=== PATIENT | female | born 1945 | race Caucasian/White ===

== ENCOUNTER → 2016-12-24 | Outpatient (CLI) | payer MEDICARE ==
[2016-12-24 11:53] LABS: Appearance,Urine Clear (Clear); Bacteria,Urine Rare /hpf; Bilirubin,Urine Negative (Negative); Glucose,Urine (UA) Negative (Negative); Ketones,Urine Negative (Negative); Leukocyte Esterase,Urine Moderate (Negative); Mucus,Urine Rare /hpf; Nitrite,Urine Negative (Negative); Particle Count 1539; Protein,Urine Negative (Negative); RBC,Urine 1 /hpf (0-5); Specific Gravity,Urine 1.014 (1.001-1.035); Squamous Epithelial Cell,Urine <1 /hpf (0-4); UA Billing (MACRO vs. MICRO) MICRO; Urobilinogen,Urine <2.0 mg/dL (<2.0); WBC,Urine 5 /hpf (0-5)
[2016-12-24 11:55] LABS: Partial Thromboplastin Time 22.5 sec (22.0-30.0)
== END | disposition home or self-care (01) ==
LOC: LABPAT 10:54
PROVIDERS: ATTEND Orthopaedic Surgery Orthopaedic Surgery of the Spine
DX: Z01.812 Encounter for preprocedural laboratory examination (principal); Z79.01 Long term (current) use of anticoagulants
CPT/HCPCS: 81001; 85610; 85730; 86850; 86900; 86901

== ENCOUNTER → 2016-12-28 | Outpatient (CLI) | payer MEDICARE | END | disposition home or self-care (01) | LOC: LABPAT 11:15 | PROVIDERS: ATTEND Orthopaedic Surgery Orthopaedic Surgery of the Spine | DX: Z01.812 Encounter for preprocedural laboratory examination (principal) | CPT/HCPCS: 87070 ==

== ENCOUNTER 2017-01-05 05:49 | Inpatient (IN) | payer MEDICARE, OTHER ==
[2016-12-29 11:39] VITALS: BMI 29.4
[~2017-01-05 05:49] MED LIST: BACITRACIN 50,000 UNIT, POLYMYXIN B 500,000 UNIT in SODIUM CHLORIDE 0.9% IRRIGATIO 1,00... IRRIGATION ONE; DEXAMETHASONE SOD PHOSPHATE 10 MG/ML 1 ML VIAL IV ONE; LACTATED RINGERS 1,000 ML IV SCH; LIDOCAINE 1% 20 ML VIAL (10MG/ML) FOR IV START INTRADERMA PRN; MIDAZOLAM 2 MG/2 ML VIAL IV PRN; ONDANSETRON 4 MG/2 ML VIAL IVP ONE; SCOPOLAMINE 1.5MG/72HR PATCH TRANSDERM ONE; ceFAZolin 2 GM in SODIUM CHLORIDE 0.9% 100 ML IVPB ONE
[2017-01-05] MEDS ORDERED: LIDOCAINE 1% INJ 10MG/ML (20 ML MDV) ONE (07:28)
[2017-01-05] MEDS ORDERED: SODIUM CHLORIDE 0.9% IRRIG 1,000 ML BTL IRRIGATION ONE (07:28)
[2017-01-05] MEDS ORDERED: ROCURONIUM BROMIDE 10 MG/ML 10 ML VIAL IV ONE (07:28)
[2017-01-05] MEDS ORDERED: PROPOFOL 10 MG/ML 20 ML VIAL IV ONE (07:28)
[2017-01-05] MEDS ORDERED: SUCCINYLCHOLINE CHLORIDE 100 MG/5 ML SYR IV ONE (07:28)
[2017-01-05] MEDS ORDERED: fentaNYL (PF) 50 MCG/ML 2 ML AMP ONE (07:28)
[2017-01-05] MEDS ORDERED: HEPARIN SODIUM,PORCINE 10,000 UNIT/ML 1 ML VIAL ONE (07:28)
[2017-01-05] MEDS ORDERED: MIDAZOLAM 2 MG/2 ML VIAL ONE (07:28)
[2017-01-05] MEDS ORDERED: PHENYLEPHRINE-0.9% NACL SYG 1 MG/10 ML SYRINGE ONE (07:28)
[2017-01-05] MEDS ORDERED: LACTATED RINGERS 1,000 ML IV ONE ×2 (08:21→09:59)
[2017-01-05] MEDS ORDERED: GELATIN SPONGE,ABSORB (LARGE) 1 EACH SPONGE TOPICAL ONE (08:26)
[2017-01-05] MEDS ORDERED: BUPIVACAINE (PF) 0.25% 30 ML VIAL SQ ONE (08:26)
[2017-01-05] MEDS ORDERED: LIDOCAINE 0.5%-EPI 1:200,000 50 ML VIAL SQ ONE (08:26)
[2017-01-05] MEDS ORDERED: THROMBIN (BOVINE) 5,000 UNIT VIAL MISCELLANE ONE (08:26)
--- NOTE | 2017-01-05 08:35 | XR ---
EXAMINATION TYPE: XR lumbar spine 1V DATE OF EXAM: 01/05/2017 COMPARISON: NONE HISTORY: Intraoperative localization TECHNIQUE: Crosstable lateral view of the lumbar spine is submitted Localization device is noted at the posterior L4 vertebral segment.
--- NOTE | 2017-01-05 11:27 | XR ---
EXAMINATION TYPE: XR lumbar spine 2 or 3V DATE OF EXAM: 01/05/2017 CLINICAL HISTORY: hardware placement TECHNIQUE: AP and lateral portable views of the lumbar spine submitted. FINDINGS: Status post lumbar laminectomy and fusion. Intervertebral body spacers at the L3-4 and L5-S1. Alignme nt is near-anatomic. IMPRESSION: Near-anatomic postoperative alignment.
[2017-01-05] MEDS ORDERED: HYDROmorphone PCA 5 MG/25 ML SYRINGE IV PRN (11:48)
[2017-01-05] MEDS ORDERED: BENZOCAINE/MENTHOL LOZENG 1 EACH LOZENGE MUCOUS MEM PRN (11:48)
[2017-01-05] MEDS ORDERED: MAGNESIUM HYDROXIDE 2,400 MG/10 ML CUP PO PRN (11:48)
[2017-01-05] MEDS ORDERED: DIAZEPAM 5 MG TAB PO PRN (11:48)
[2017-01-05] MEDS ORDERED: HYDROmorphone 1 MG/ML 1 ML SYRINGE IVP PRN (11:48)
[2017-01-05] MEDS ORDERED: ONDANSETRON 4 MG/2 ML VIAL IVP PRN (11:50)
[2017-01-05] MEDS ORDERED: HYDROcodone/APAP 5-325MG 1 EACH TAB PO PRN (11:50)
[2017-01-05] MEDS ORDERED: traMADol 50 MG TAB PO PRN (11:53)
--- NOTE | 2017-01-05 12:02 | P.OP ---
Date of Procedure: 01/05/17 Preoperative Diagnosis: Degenerative scoliosis lumbar spine, spinal stenosis L3 4 L4 5 L5-S1, degenerative disc disease L3 4 L4 5 L5-S1, low back pain with lower extremity radiculopathy, herniated nucleus pulposis L3 4 and L5-S1, Postoperative Diagnosis: Same Procedure(s) Performed: Implants: Anesthesia: GETA Pathology: none sent Condition: stable Disposition: PACU Indications for Procedure: Operative Findings: Description of Procedure: BRIEF OPERATIVE NOTE Preoperative Diagnosis: Degenerative scoliosis, spinal stenosis L3 4 L4 5 L5-S1 , degenerative disc disease L3 4 L4 5 L5-S1, herniated nucleus pulposis L3 4 L5- S1, low back pain with lower extremity radiculopathy Postoperative Diagnosis: Same Procedure: Laminectomy and decompression with wide bilateral foraminotomy L3 4 L4 5 L5-S1 Posterior lateral decompression and fusion L3 4 L4 5 L5-S1 Transforaminal lumbar interbody fusion for a 360 fusion L3 4 and L5-S1 Discectomy for decompression L3 4 and L5-S1 L3 4 and L5-S1 Placement of interbody graft Local autogenous bone grafting Bone marrow aspiration revealed the pedicle of L4 for supplementing the local and autogenous bone graft Use of Cell Saver Use of bone graft extenders Use of neuro monitoring Surgeon: Dr. Beavers Assistant Community Manager: Darren Meehan is present throughout the entire the case persistence during positioning, dissection, exposure, visualization, and all crucial elements of the case as well as closure. Anesthesia: General anesthesia per Dr. Chamorro Estimated blood loss: Approximately 500 mL with approximately 260 mL given back through Cell Saver Complications: None apparent Components implanted: K2M [place] pedicle screw system with 8 screws each measuring 6.5 mm in diameter, 2 rods and one cross-link with 2 K2M peek interbody cages and one cross-link along with one large osteo-amp allograft bone sponge and 30 mL of allograft DBX bone fibers Disposition: To recovery room in good stable condition. OPERATIVE INDICATIONS The patient has had long-standing issues in their lower back and lower extremities. She is found have significant degenerative scoliosis with severe disc degeneration causing significant spinal stenosis along with herniated nucleus pulposis which correlated well with her low back and lower extremity symptoms. She is having worsening this pain despite aggressive conservative treatment. She is having significant debility due to her progressive back pain and lower extremity radiculopathy. The patient has been through conservative treatment. She is not having any along pain improvement despite conservative care. We discussed various treatment options including surgery, and the patient wishes to proceed with surgery We discussed the risk, patient's alternatives and benefits of surgery including but not limited to, risk of bleeding risk of infection, risk of need for further surgery, risk of decreased , loss of motion, muscle function, malunion nonunion, hardware failure, nerve damage, paralysis, heart attack, blindness and . OPERATIVE SUMMARY After discussing all the risks, patient alternatives and benefits at length, the patient elected to proceed with surgical intervention, signed informed consent, and presented for their procedure. The patient was seen and examined in the preoperative holding area and the surgical site was marked. The patient was given antibiotics and brought to the operating room. The patient was sedated and intubated by anesthesia in standard fashion. The patient was positioned on to the operating room table in a prone position on the appropriate frame which was well-padded and well molded. We were careful to pad any bony prominences and pressure points. We were careful to maintain the patient's cervical spine and good neutral alignment and position throughout. The patient was prepped and draped in a normal standard fashion. An appropriate timeout and keystone protocol performed. We were able to proceed with the surgery. The local wound area was infiltrated with local anesthetic. An incision was made at the midline longitudinally over the appropriate levels from L3 to S1. Dissection was taken down subcutaneously to the level of the fascia which was split midline. Dissection was taken over the lamina bilaterally over the facet joints and to the transverse processes. Intraoperative x-ray was taken which showed a marker at the appropriate level at L4 pedicle. With the appropriate level positively confirmed, we were able to proceed with placement of the pedicle holes and screws. The patient had all their twitches back. The wound was copiously irrigated and suctioned dry as had been done periodically throughout the case. Screw holes were established similarly at each level. A sharp awl was used to establish the starting hole. It was palpated and found to have good for duarte and good base. During placement of the screws I had taken account the curvature and scoliotic rotation to establish appropriate placement. A monitored Steffee probe was used to establish the pedicle hole. It was positioned so there was no stimulation at 12 mA. The hole was palpated and found to have good for duarte and a good base. The hole was tapped with the appropriate sized tap. The transverse process or sacral ala was decorticated with a high-speed bur. I was able to use these holes to place the appropriate size screw and good alignment and good position with good bony purchase. When the screws were inserted there were stimulated, and found to have no stimulation at 17 mA. this was performed with all screws at L3 4 5 and S1 bilaterally. I was able to turn my attention to the decompression. decompression was performed with a combination of rongeurs, curettes, Kerrison rongeurs and a ball -tip feeler. There was significant stenosis bilaterally particularly at the foraminal spaces at L3 4 L4 5 and L5-S1 which was remedied with the decompression. All of the bone that was removed was stripped and morcellized for use as autogenous bone graft later in the case. I was able to obtain good central decompression as well as wide bilateral foraminal decompression at L3 4 L4 5 and L5-S1. There is no evidence of dural tear or leak. Good hemostasis was maintained. The wound was irrigated and suctioned dry. I performed a complete facetectomy at the appropriate level on the most symptomatic side at L3 4 and L5-S1. There was severe advanced collapsed at L4 5 and I do not feel that would be able to place an interbody device at that level. At L3 4 and L5-S1 All bone that was removed was saved for local autogenous bone grafting. I was able to gain access to the disc space at the appropriate level/levels. Good hemostasis was maintained. I was able to protect the neurologic structures. No was made of disc protrusion and compression from the disc itself. There was some evidence of herniation at L5- S1 as well. A discectomy was performed. This provided further decompression. I was also able to perform complete discectomy and endplate preparation with a combination of pituitary curettes, rasps and scrapers. With the interbody space prepared, I was able to do appropriate sizing. The appropriate size cage was chosen. The wound was irrigated and suctioned dry. The interbody space was packed with local autogenous bone graft and a small portion of bone graft substitute, as was the cage itself. Protecting the soft tissue structures, I was able place the cage in good alignment and good position with good fit and fill at L3 4 and then at L5-S1. There is no evidence of extrusion of the graft material nor protrusion of the interbody device. The wound was irrigated and suctioned dry. With the hardware intact, intraoperative x-ray was again taken which showed good alignment and position of the hardware at the appropriate levels from L3 to S1. We were then able to measure, contour and place the rods and appropriate hardware bilaterally. I did perform some gentle distraction at the concave side to get good realignment of the scoliotic curvature. I was able to place capcrews, tighten them down, and torque them off appropriately. The sheared portion was counted and accounted for. With this intact I was able to place the local autogenous bone graft with additional bone graft enhancer as necessary into the posterior lateral gutters bilaterally. With the bone graft intact, a stable construct, and good decompression at the appropriate levels, we were able to proceed with closure. Good hemostasis was maintained. There is no evidence of dural tear or leak. The fascia was closed for a watertight closure. The subcutaneous tissue was closed over a superficial drain. The subcuticular tissue was closed with absorbable suture. The wound was cleaned and dried and dressed with the appropriate dressing. The drapes were broken down. The patient was gently rolled back onto their hospital bed being careful to maintain their cervical spine and good neutral alignment and position. They were woken up by anesthesia, extubated, and brought to the recovery room in good stable condition. The patient will be admitted to the hospital for appropriate postoperative care , medical management and monitoring. We will continue to follow them closely about the postoperative course.
[2017-01-05] MEDS: HYDROmorphone 1 MG/ML 1 ML SYRINGE IVP PRN ×6 (12:20→20:18)
[2017-01-05] MEDS: SODIUM CHLORIDE 0.9% 1,000 ML IV SCH ×3 (14:40→20:21)
[2017-01-05 16:25] LABS: ALT 33 U/L (9-52); AST 35 U/L (14-36); Alkaline Phosphatase 50 U/L (38-126); Anion Gap 5 mmol/L; Blood Urea Nitrogen 20 mg/dL (7-17); Calcium 8.5 mg/dL (8.4-10.2); Carbon Dioxide 26 mmol/L (22-30); Chloride 104 mmol/L (98-107); Glucose 108 mg/dL (74-99); Non-African American GFR(MDRD) >60 (>60 ml/min/1.73 sqM); Potassium 4.3 mmol/L (3.5-5.1); Sodium 135 mmol/L (137-145); Total Bilirubin 0.9 mg/dL (0.2-1.3); Total Protein 5.3 g/dL (6.3-8.2)
[2017-01-05 16:29] LABS: Basophils % (A) 0 %; CH 29.9; CHCM 34.4; Eosinophils % (A) 0 %; HCT 37.2 % (34.0-46.0); HGB 12.7 gm/dL (11.4-16.0); Luc # (Auto) 0.09; Luc % (Auto) 1; Lymphocytes # (A) 0.8 k/uL (1.0-4.8); Lymphocytes % (A) 8 %; MCH 29.9 pg (25.0-35.0); MCHC 34.2 g/dL (31.0-37.0); MCV 87.5 fL (80.0-100.0); Mean Platelet Volume 7.2; Monocytes # (A) 0.6 k/uL (0-1.0); Monocytes % (A) 6 %; Neutrophils # (A) 9.6 k/uL (1.3-7.7); Neutrophils % (A) 86 %; RBC 4.26 m/uL (3.80-5.40); RDW 13.8 % (11.5-15.5); WBC 11.2 k/uL (3.8-10.6); WBC (Perox) 11.54
[2017-01-05] MEDS: ceFAZolin 2 GM in SODIUM CHLORIDE 0.9% 100 ML IVPB SCH ×2 (16:40→23:13)
[2017-01-05] MEDS: ATORVASTATIN 40 MG TAB PO SCH (20:19)
[2017-01-05] MEDS: NITROFURANTOIN MONOHYD/M-CRYST 100 MG CAP PO SCH (20:19)
[2017-01-05] MEDS: HYDROcodone/APAP 5-325MG 1 EACH TAB PO PRN (23:13)
[2017-01-06] MEDS: HYDROmorphone 1 MG/ML 1 ML SYRINGE IVP PRN ×3 (04:37→16:38)
[2017-01-06] MEDS: SODIUM CHLORIDE 0.9% 1,000 ML IV SCH ×2 (04:38→08:58)
[2017-01-06 06:06] LABS: Basophils % (A) 0 %; Eosinophils % (A) 1 %; HCT 34.7 % (34.0-46.0); HDW 2.45; HGB 11.8 gm/dL (11.4-16.0); Luc % (Auto) 2; Lymphocytes # (A) 0.9 k/uL (1.0-4.8); Lymphocytes % (A) 13 %; MCH 30.1 pg (25.0-35.0); MCHC 33.9 g/dL (31.0-37.0); MCV 88.8 fL (80.0-100.0); Mean Platelet Volume 7.5; Monocytes # (A) 0.5 k/uL (0-1.0); Monocytes % (A) 7 %; Neutrophils # (A) 5.3 k/uL (1.3-7.7); Neutrophils % (A) 78 %; RBC 3.91 m/uL (3.80-5.40); RDW 13.9 % (11.5-15.5); WBC 6.8 k/uL (3.8-10.6); WBC (Perox) 7.33
[2017-01-06 06:47] LABS: Anion Gap 4 mmol/L; Blood Urea Nitrogen 13 mg/dL (7-17); Calcium 8.6 mg/dL (8.4-10.2); Carbon Dioxide 27 mmol/L (22-30); Chloride 108 mmol/L (98-107); Glucose 106 mg/dL (74-99); Non-African American GFR(MDRD) >60 (>60 ml/min/1.73 sqM); Potassium 3.9 mmol/L (3.5-5.1); Sodium 139 mmol/L (137-145)
--- NOTE | 2017-01-06 07:50 | CONS ---
DATE OF SERVICE: 01/05/2017 Reason for consultation is advice regarding hypertension, hyperlipidemia, requested by Orthopedic Surgery. HISTORY OF PRESENT ILLNESS: This is a 71-year-old woman with a past medical history of hypertension, hyperlipidemia, DJD, had a back surgery. Patient had laminectomy and decompression. There is no history of fever, chills or rigors. No history of headache, loss of consciousness. Patient has mildly relative hypotension. PAST MEDICAL HISTORY: Hypertension, hyperlipidemia, DJD, history of scoliosis, section. Medications prior to admission include Ultram 50 to 100 q.6 p.r.n., Nitrofurantoin 100 mg p.o. b.i.d., lisinopril-hydrochlorothiazide 1 tablet p.o. daily, Ibuprofen 81 mg q.6 p.r.n., Lipitor 40 mg q.h.s. Allergies are none. FAMILY HISTORY: History of blood disorder, cancer, DVT in the family. SOCIAL HISTORY: Previous history of smoking, no history of alcohol intake. REVIEW OF SYSTEMS: ENT: No diminished hearing or diminished vision. CARDIOVASCULAR: No angina, no palpitation. RESPIRATORY: As mentioned earlier. GI: No nausea. : No dysuria. NERVOUS SYSTEM: No numbness or weakness. ALLERGY/IMMUNOLOGY: No asthma or hayfever. MUSCULOSKELETAL: As mentioned earlier. HEMATOLOGY: No history of anemia. ENDOCRINE: No history of diabetes or hypothyroid. CONSTITUTIONAL: As mentioned earlier. DERMATOLOGY: Negative. RHEUMATOLOGY: Negative. PSYCHIATRY: As mentioned earlier. PHYSICAL EXAM: Patient is alert and oriented x3. Pulse 99, blood pressure 98, respirations 20 , temperature is normal. Pulse ox normal. HEENT: Conjunctivae normal. NECK: No jugular venous distension. CARDIOVASCULAR SYSTEM: S1, S2, muffled. RESPIRATORY: Breath sounds diminished at the base, no rhonchi, no crackles. ABDOMEN: Soft, nontender, no mass palpable. LEG: No edema, no swelling. NERVOUS SYSTEM: No focal deficits. BACK: Status post surgery. Labs are at this time the current labs are not available. UA shows moderate . ASSESSMENT: 1. Status post laminectomy with decompression with bilateral foraminotomy L3-4 , L4-5 and L5-S1 for degenerative joint disease and spinal stenosis. 2. Relative hypotension. 3. History of hypertension. 4. Hyperlipidemia. 5. Degenerative joint disease. 6. History of section. 7. Remote history of nicotine dependence. 8. FULL CODE. RECOMMENDATION: In this 71-year-old woman who presented with multiple complex medical issues, will monitor the patient closely. Continue with the current medication. Continue with the symptomatic treatment. Recommend hold off the lisinopril and will continue to monitor and once the blood pressure is stabilized, the lisinopril may be restarted. Otherwise, further recommendations to follow. MTDD
[2017-01-06] MEDS ORDERED: LISINOPRIL-HCTZ 10-12.5 MG 1 EACH TAB PO SCH (09:00)
[2017-01-06] MEDS: NITROFURANTOIN MONOHYD/M-CRYST 100 MG CAP PO SCH ×2 (09:06→21:37)
[2017-01-06] MEDS: SENNOSIDES-DOCUSATE SODIUM 1 EACH TAB PO SCH (09:07)
--- NOTE | 2017-01-06 09:49 | P.PN ---
Progress Note - Text Postoperative day #1 Patient is seen and examined today at bedside. The patient has some pain around the surgical site as expected. She had to switch removed yesterday and she was able stand up yesterday and has already sat up in bed this morning. Pain is being controlled with medication. She has been able to eat dinner and breakfast this morning Physical Exam Afebrile with stable vital signs Abdomen is soft nontender. Chest has good excursion deep and space expiration The incision site is clean dry and intact. No erythema there is no purulence. The dressing and the drains are intact at her back Extremities have not had neurologic change from prior to surgery. She has sustained dorsal flexion plantar flexion and EHL intact. Calves and thighs were soft nontender without evidence of DVT. Assessment/Plan Postoperative day #1 status post lumbar decompression and fusion L3 4 L4 5 L5- S1 for her degenerative scoliosis with spinal stenosis and degenerative disc disease Patient is progressing as expected from the surgery. She is already done some mobilization and is tolerating her diet nicely. We will continue to increase the patient's mobilization with therapy. Physical therapy will work with her this morning. Her Andrew catheter will be discontinued today. We will continue pain control with oral or IV medications. We'll continue to follow patient closely.
--- NOTE | 2017-01-06 16:13 | PN ---
DATE OF SERVICE: 01/06/17 This 71-year-old woman who was admitted after laminectomy is improving significantly. No chest pain. No palpitations. No fever. PHYSICAL EXAMINATION: The patient is alert and oriented times three. Pulse 82. Blood pressure 111/60. Respiratory rate 18. Temperature 98.8. Pulse ox 99% on 2 L. HEENT: Conjunctivae normal. Oral mucosa moist. NECK: No JVD. Cardiovascular : S1, S2 muffled. Respiratory: Breath sounds diminished at the bases. A few scattered rhonchi and no crackles. Abdomen soft. Nontender. Legs no edema. No swelling. Nervous system: No focal deficits. Minimal facial puffiness. Examination of the back status post surgery. Labs: WBC 6.8. Glucose 106. ASSESSMENT: 1. Status post laminectomy and decompression and bilateral foraminotomy L3, L4 , L4-5, L5-S1 for degenerative joint disease and spinal stenosis. 2. Relative hypotension. 3. History of hypertension. 4. Hyperlipidemia. 5. Degenerative joint disease. 6. History of . 7. Remote history of nicotine dependence. 8. FULL CODE. RECOMMENDATIONS AND DISCUSSION: In this 71 -year-old woman who presented with multiple complex medical issues, we will monitor the patient closely. Continue the current medications. Continue symptomatic treatment. Otherwise, incentive spirometry. Deep venous thrombosis prophylaxis. Continue the rest of the medications. Further recommendations to follow. MTDD
[2017-01-06] MEDS: ATORVASTATIN 40 MG TAB PO SCH (21:37)
[2017-01-07] MEDS: SODIUM CHLORIDE 0.9% 1,000 ML IV SCH ×3 (07:17→22:02)
[2017-01-07 07:44] LABS: Basophils % (A) 0 %; CH 30.1; CHCM 34.4; Eosinophils % (A) 0 %; HDW 2.45; HGB 10.6 gm/dL (11.4-16.0); Luc # (Auto) 0.16; Luc % (Auto) 2; Lymphocytes # (A) 0.8 k/uL (1.0-4.8); Lymphocytes % (A) 8 %; MCHC 34.1 g/dL (31.0-37.0); MCV 87.9 fL (80.0-100.0); Mean Platelet Volume 7.4; Monocytes # (A) 0.6 k/uL (0-1.0); Monocytes % (A) 6 %; Neutrophils # (A) 7.8 k/uL (1.3-7.7); Neutrophils % (A) 83 %; RBC 3.52 m/uL (3.80-5.40); RDW 13.9 % (11.5-15.5); WBC 9.3 k/uL (3.8-10.6); WBC (Perox) 10.02
--- NOTE | 2017-01-07 08:29 | P.PN ---
Progress Note - Text Orthopedic Spine Patient is a pleasant 71-year-old female who is seen and examined at the bedside following posterior lateral decompression and fusion performed Tuesday. Patient states they are doing well postsurgically. She has been able to ambulate to the restroom on her own with the assistance of a walker. Her Andrew catheter has been discontinued. She feels she is regaining strength of the right lower extremity postsurgically. She is now able to independently lift her left leg off the bed without significant difficulty. This was a problem for her prior to surgery. She continues to receive IV and oral medications for pain control. He continues to have some pain at the surgical site, which is expected. She is able to roll to her left but has difficulty rolling to her right. She is not currently complaining of nausea, vomiting, fever, or chills. Patient states pain has been adequately controlled. Patient is eating and voiding freely without difficulty. She has not had a bowel movement postsurgically. She has not currently passing gas. She is not experiencing any abdominal pain. She states she does not have a regular bowel movement. She is currently receiving Senokot in the morning and milk of magnesia when necessary for constipation. Physical Exam Lumbar Fusion: Status post surgical day number 2 Patient is awake, alert, and oriented 3 Vital signs stable Good chest excursion with deep inspiration and expiration Abdomen soft nontender Dorsiflexion, plantarflexion, and extensor hallucis longus positive sustained bilaterally No signs or symptoms of DVT; no calf pain; pneumatic cuffs intact bilateral lower extremities Dressing is clean, dry, and intact; no erythema, purulence, or signs of infection Dressing removed and changed to nonstick Telfa and Tegaderm during physical examination No active drainage from the incision site Hemovac drain well secure; Hemovac drain removed during physical examination Neurovascularly intact bilaterally lower extremities Assessment: Posterior lateral decompression and fusion L3-S1 Transforaminal lumbar interbody fusion L3-4 and L5-S1 Plan: 1. Ambulate as tolerated; work with Physical Therapy to increase mobilization 2. 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 Dressing changed to Telfa and Tegaderm; Hemovac drain discontinued 4. Medical management can continue to manage patient for patient's other medical issues 5. We will continue to follow the patient closely; if the patient continues to progress, may plan to have her discharged home as early as tomorrow, 01/08/2017 , or possibly 01/09/2017 6. Patient can follow-up with Darren Curtis PA-C or Dr. Kieran Beavers at [facility] in 2-3 weeks following discharge
[2017-01-07] MEDS: HYDROcodone/APAP 5-325MG 1 EACH TAB PO PRN ×4 (08:32→21:31)
[2017-01-07] MEDS: SENNOSIDES-DOCUSATE SODIUM 1 EACH TAB PO SCH (08:32)
[2017-01-07] MEDS: NITROFURANTOIN MONOHYD/M-CRYST 100 MG CAP PO SCH ×2 (08:57→21:31)
[2017-01-07] MEDS: ATORVASTATIN 40 MG TAB PO SCH (21:31)
--- NOTE | 2017-01-07 21:35 | PN ---
DATE OF SERVICE: 01/07/2017 This 71-year-old woman who was admitted after laminectomy is improving significantly. No chest pain. No palpitations. No fever. Occasional cough is reported. On exam, alert and oriented x2. Pulse 109, blood pressure 107/67, respiration 16, temperature 99 degrees, pulse ox 96% on room air. HEENT: Conjunctivae normal. NECK: No jugular venous distention. CARDIOVASCULAR: S1, S2 muffled. RESPIRATORY: Breath sounds diminished at the bases. A few scattered rhonchi. No crackles. ABDOMEN: Soft, non-tender. No mass palpable. LEGS: No edema. No swelling. NERVOUS SYSTEM: No focal deficit. LABS: WBC 9.3, hemoglobin 10.6. ASSESSMENT: 1. Status post laminectomy and decompression, bilateral foraminotomy, L3-4, L4-5 , L5-S1, for degenerative joint disease and spinal stenosis. 2. Relative hypotension. 3. History of hypertension. 4. Hyperlipidemia. 5. History of degenerative joint disease. 6. History of section. 7. Remote history of nicotine dependence. 8. FULL CODE. RECOMMENDATIONS AND DISCUSSION: I recommend to continue the current medications , continue with symptomatic treatment. Otherwise, at this time I recommend continuing with incentive spirometry. Repeat labs in the morning. Closely follow with Orthopedic Surgery. Further recommendations to follow. MTDD
[2017-01-08] MEDS: SODIUM CHLORIDE 0.9% 1,000 ML IV SCH ×3 (05:02→21:15)
[2017-01-08] MEDS: HYDROcodone/APAP 5-325MG 1 EACH TAB PO PRN ×4 (06:56→21:10)
[2017-01-08 07:06] LABS: Basophils % (A) 0 %; CH 30.1; CHCM 34.4; Eosinophils # (A) 0.1 k/uL (0-0.7); Eosinophils % (A) 2 %; HCT 30.6 % (34.0-46.0); HDW 2.49; HGB 10.3 gm/dL (11.4-16.0); Luc # (Auto) 0.14; Luc % (Auto) 2; Lymphocytes % (A) 12 %; MCH 29.5 pg (25.0-35.0); MCHC 33.5 g/dL (31.0-37.0); Mean Platelet Volume 7.4; Monocytes # (A) 0.4 k/uL (0-1.0); Monocytes % (A) 5 %; Neutrophils # (A) 6.6 k/uL (1.3-7.7); Neutrophils % (A) 80 %; RBC 3.48 m/uL (3.80-5.40); RDW 13.8 % (11.5-15.5); WBC 8.3 k/uL (3.8-10.6); WBC (Perox) 8.91
[2017-01-08] MEDS: SENNOSIDES-DOCUSATE SODIUM 1 EACH TAB PO SCH (07:49)
--- NOTE | 2017-01-08 09:29 | P.PN ---
Progress Note - Text Postoperative day #3 Patient is seen and examined today at bedside. The patient has some pain around the surgical site as expected. Pain is being controlled with medication. She is able stand up on her own and walk with her walker in her room. She has not yet had a bowel movement but she is passing gas. She is tolerating her regular diet. Physical Exam Afebrile with stable vital signs Abdomen is soft nontender. Chest has good excursion deep and space expiration The incision site is clean dry and intact. No erythema there is no purulence. There is no active drainage. There is no erythema. Extremities have not had neurologic change from prior to surgery. She has good dorsiflexion plantarflexion at her EHL foot and ankles. Calves and thighs were soft nontender without evidence of DVT. Assessment/Plan Postoperative day #3 status post decompression and fusion at L3 4 L4 5 L5-S1 for her degenerative scoliosis and spinal stenosis with lower extremity radiculopathy Patient is progressing as expected from the surgery. She feels her legs have had significant improvement in her back pain is doing well and improving with medications We will continue to increase the patient's mobilization with therapy. She will continue to increase her mobility and her walking We will continue pain control with oral or IV medications. We'll continue to follow patient closely. I would like to see if she is able to have a bowel movement today and I think she'll be ready for discharge home tomorrow morning.
--- NOTE | 2017-01-08 19:13 | PN ---
DATE OF SERVICE: This 71-year-old woman who was admitted with laminectomy and decompression is being closely monitored. No chest pain. No palpitations. No fever. On exam, alert and oriented times three. Pulse 104. Blood pressure 109/67. Respiratory rate 16. Temperature 98.4. Pulse ox 94% on room air. HEENT: Conjunctivae normal. NECK: No JVD. Cardiovascular: S1, S2 muffled. Respiratory: Breath sounds diminished at the bases. A few scattered rhonchi. Abdomen soft. Nontender. Legs, no edema. No swelling. Nervous system: No focal deficits. Back: Status post surgery. Labs: WBC 8.3, Hemoglobin 10.3. ASSESSMENT: 1. Status post laminectomy decompression bilateral foraminotomy L3-4, L4-5, L5 -S1 for degenerative joint disease. 2. Spinal stenosis. 3. Relative hypotension, improved. 4. History of hypertension. 5. Hyperlipidemia. 6. Degenerative joint disease. 7. History of . 8. Remote history of nicotine dependence. 9. FULL CODE. RECOMMENDATIONS AND DISCUSSION: Recommend to continue the current medications. Continue with symptomatic treatment. Otherwise, closely monitor. Incentive spirometry. Guarded prognosis. Further recommendations to follow. MTDD
[2017-01-08] MEDS: ATORVASTATIN 40 MG TAB PO SCH (20:19)
[2017-01-09] MEDS: HYDROcodone/APAP 5-325MG 1 EACH TAB PO PRN ×3 (01:31→10:52)
[2017-01-09] MEDS: SODIUM CHLORIDE 0.9% 1,000 ML IV SCH (05:48)
[2017-01-09] MEDS: SENNOSIDES-DOCUSATE SODIUM 1 EACH TAB PO SCH (07:20)
[2017-01-09 08:39] VITALS: BP 128/66; PULSE 84; RESP 16; TEMP 97.5
--- NOTE | 2017-01-09 12:18 | P.DS ---
Providers Date of admission: 01/05/17 05:49 Expected date of discharge: 01/09/17 Attending physician: Lurdes Beavers Consults: 01/05/17 15:22 Consult Physician Routine Consulting Provider: Neftali Pelaez Consult Reason/Comments: Medical managment Do you want consulting provider notified?: Already Contacted Primary care physician: Virginia Roto - Discharge Diagnosis(es) (1) Lumbar spinal stenosis Current Visit: Yes Status: Acute (2) Herniated nucleus pulposus, lumbar Current Visit: Yes Status: Acute (3) Lumbar degenerative disc disease Current Visit: Yes Status: Acute (4) Low back pain Current Visit: Yes Status: Acute (5) Radiculopathy with lower extremity symptoms Current Visit: Yes Status: Acute (6) Degenerative scoliosis Current Visit: Yes Status: Acute Hospital Course: This is a pleasant 71-year-old female who presented with L3-4, L4-5, and L5-S1 spinal canal stenosis and degenerative disc disease, L3-4 and [id number] nucleus pulposus, L4-5 severe degenerative disc disease, degenerative scoliosis , low back pain, and lower extremity radiculopathy who failed outpatient conservative therapy. She was admitted for posterior lateral decompression and fusion L3-4, L4-5, and L5-S1 with transforaminal lumbar interbody fusion L3-4 and L5-S1. The patient tolerated the procedure well and did well postoperatively. She is not currently expressing any abdominal pain or discomfort. She is passing gas. She has not had a bowel movement during her admission. She's been able to ambulate without significant difficulty with the aid of a walker. She feels she has been steadily improving over the past couple days. Condition on day of discharge stable. Patient will be discharged home. Patient was cleared preoperatively for surgery by Dr. Root. Patient currently denies any nausea, vomiting, fever, or chills. Patient is eating and voiding freely without difficulty. Patient may shower Tegaderm dressing intact. Patient may remove Tegaderm dressing in 2 days and shower without a dressing at that time. Patient should keep Steri-Strips intact and allow them to fall off naturally. Patient should refrain from driving until at least after their first follow-up appointment in the office. Patient should avoid excessive bending, lifting, and twisting; no lifting greater than 10 pounds. She will be given prescriptions for Darragh 7.5 mg/E 25 mg 1 tab every 6 hours as needed for pain, dispense #90 and Senokot-S 1 tab twice per day as needed for constipation, dispense #60. Patient should discontinue Motrin 800 mg and tramadol 50 mg as previously prescribed. Physical Exam on day of discharge: Patient is awake, alert, and oriented 3 Vital signs stable Good chest excursion with deep inspiration and expiration Abdomen soft nontender No signs or symptoms of DVT; no calf pain Extensor hallucis longus, plantarflexion, and dorsiflexion positive sustained bilateral lower extremities Incision is clean, dry, and intact; no erythema, purulence, or signs of infection Tegaderm dressing and non-stick Telfa intact Procedures: Posterior lateral decompression and fusion L3-4, L4-5, and L5-S1 with transforaminal lumbar interbody fusion L3-4 and L5-S1. Patient Condition at Discharge: Stable Plan - Discharge Summary New Discharge Prescriptions: New HYDROcodone/APAP 7.5-325MG [Darragh 7.5-325] 1 each PO Q6HR PRN #90 tab PRN Reason: Pain Sennosides-Docusate Sodium [Senokot-S] 1 tab PO BID PRN #60 tablet PRN Reason: Constipation No Action traMADol HCL [Ultram] 50 - 100 mg PO Q6HR PRN PRN Reason: Pain Nitrofurantoin Monohyd/M-Cryst [Macrobid] 100 mg PO Q12HR Lisinopril-Hctz 10-12.5 mg [Zestoretic 10-12.5] 1 tab PO DAILY Atorvastatin [Lipitor] 40 mg PO HS Ibuprofen 800 mg PO Q6H PRN PRN Reason: Pain Discharge Medication List Atorvastatin [Lipitor] 40 mg PO HS 12/29/16 [History] Ibuprofen 800 mg PO Q6H PRN 12/29/16 [History] Lisinopril-Hctz 10-12.5 mg [Zestoretic 10-12.5] 1 tab PO DAILY 12/29/16 [History ] Nitrofurantoin Monohyd/M-Cryst [Macrobid] 100 mg PO Q12HR 12/29/16 [History] traMADol HCL [Ultram] 50 - 100 mg PO Q6HR PRN 12/29/16 [History] HYDROcodone/APAP 7.5-325MG [Darragh 7.5-325] 1 each PO Q6HR PRN #90 tab 01/09/17 [ Rx] Sennosides-Docusate Sodium [Senokot-S] 1 tab PO BID PRN #60 tablet 01/09/17 [Rx] Follow up Appointment(s)/Referral(s): Darren Curtis, [place] [PHYSICIAN [employer]] - 2 Weeks (Patient may follow-up with Darren Curtis PA-C or Dr. Kieran Beavers at [facility] in 2-3 weeks following discharge. ) Activity/Diet/Wound Care/Special Instructions: 1. Patient may shower Tegaderm dressing intact. 2. Patient may remove Tegaderm dressing in 2 days and shower without a dressing at that time. 3. Patient should keep Steri-Strips intact and allow them to fall off naturally. 4. Patient should refrain from driving until at least after their first follow- up appointment in the office. 5. Patient should avoid excessive bending, twisting, and lifting; no lifting greater than 10 pounds 6. Do not soak in tub Discharge Disposition: HOME SELF-CARE
--- NOTE | 2017-01-10 09:30 | PN ---
DATE OF SERVICE: 01/09/2017 This 71-year-old woman who was admitted after laminectomy, also had relative hypotension on admission. Patient improving significantly. No chest pain or palpitation. No fever. On exam, alert and oriented x3. The pulse is 84. Blood pressure is 128/66, respirations 16, temperature 97.4, pulse ox 99% on room air. HEENT: Conjunctivae normal. NECK: No jugular venous distention. CARDIOVASCULAR: S1 and S2 muffled. RESPIRATORY: Breath sounds diminished at the bases. No rhonchi, no crackles. ABDOMEN: Soft. LEGS: No edema, no swelling. NERVOUS SYSTEM: No focal deficits. EXAMINATION OF THE BACK: Status post surgery. LABS: WBC 8.3, hemoglobin 10.3. ASSESSMENT: 1. Status post laminectomy and decompression bilateral foraminotomy L3-4, L4-5 , L5-S1 for degenerative joint disease. 2. Spinous stenosis, 3. Relative hypotension, improved. 4. History of hypertension. 5. Hyperlipidemia. 6. History of degenerative joint disease. 7. History of section. 8. Remote history of nicotine dependence. 9. FULL CODE. RECOMMENDATIONS AND DISCUSSION: Recommend to continue the current medications. Continue with monitoring and symptomatic treatment. Otherwise at this time, I would recommend resume the home medications, incentive spirometry. Closely follow with primary physician and the rest of the recommendations per orthopedic surgery. MTDD
== END 2017-01-09 14:51 | disposition home or self-care (01) | DRG 455 ==
LOC: 2ORMAIN 05:49 → 5MS5E 12:12 → 5ONC 19:22
PROVIDERS: ADMIT Orthopaedic Surgery Orthopaedic Surgery of the Spine; ATTEND Orthopaedic Surgery Orthopaedic Surgery of the Spine
PROC: 0SG10A0 Fusion of 2 or more Lumbar Vertebral Joints with Interbody Fusion Device, Anterior Approach, Anterior Column, Open Approach (ICD-10-PCS; 2017-01-05)
PROC: 0SB20ZZ Excision of Lumbar Vertebral Disc, Open Approach (ICD-10-PCS; 2017-01-05)
PROC: 0SB40ZZ Excision of Lumbosacral Disc, Open Approach (ICD-10-PCS; 2017-01-05)
PROC: 0SG30A0 Fusion of Lumbosacral Joint with Interbody Fusion Device, Anterior Approach, Anterior Column, Open Approach (ICD-10-PCS; 2017-01-05)
PROC: 0SG30AJ Fusion of Lumbosacral Joint with Interbody Fusion Device, Posterior Approach, Anterior Column, Open Approach (ICD-10-PCS; 2017-01-05)
PROC: 4A11X4G Monitoring of Peripheral Nervous Electrical Activity, Intraoperative, External Approach (ICD-10-PCS; 2017-01-05)
PROC: 30233N0 Transfusion of Autologous Red Blood Cells into Peripheral Vein, Percutaneous Approach (ICD-10-PCS; 2017-01-05)
PROC: 07DS3ZZ Extraction of Vertebral Bone Marrow, Percutaneous Approach (ICD-10-PCS; 2017-01-05)
PROC: 0SG00AJ Fusion of Lumbar Vertebral Joint with Interbody Fusion Device, Posterior Approach, Anterior Column, Open Approach (ICD-10-PCS; principal; 2017-01-05 07:30)
DX: M48.06 Spinal stenosis, lumbar region (principal); I95.9 Hypotension, unspecified; M48.07 Spinal stenosis, lumbosacral region; M51.37 Other intervertebral disc degeneration, lumbosacral region; M47.817 Spondylosis without myelopathy or radiculopathy, lumbosacral region; M71.38 Other bursal cyst, other site; M46.97 Unspecified inflammatory spondylopathy, lumbosacral region; M51.36 Other intervertebral disc degeneration, lumbar region; M51.27 Other intervertebral disc displacement, lumbosacral region; M51.16 Intervertebral disc disorders with radiculopathy, lumbar region; M41.86 Other forms of scoliosis, lumbar region; I10 Essential (primary) hypertension; E78.5 Hyperlipidemia, unspecified; K59.00 Constipation, unspecified; R05 Cough; R53.81 Other malaise; Z80.1 Family history of malignant neoplasm of trachea, bronchus and lung; Z80.3 Family history of malignant neoplasm of breast; Z83.3 Family history of diabetes mellitus; Z82.49 Family history of ischemic heart disease and other diseases of the circulatory system; Z82.61 Family history of arthritis; Z87.440 Personal history of urinary (tract) infections; Z87.891 Personal history of nicotine dependence; Z79.899 Other long term (current) drug therapy; Z87.81 Personal history of (healed) traumatic fracture; Z86.69 Personal history of other diseases of the nervous system and sense organs; Z79.1 Long term (current) use of non-steroidal anti-inflammatories (NSAID); Z79.891 Long term (current) use of opiate analgesic
CPT/HCPCS: 72020; 72100; 80048; 80053; 81001; 85025; 86850; 86891; 86900; 86901; 94760